=== PATIENT | male | born 1955 | race Caucasian/White ===

== ENCOUNTER 2017-12-30 21:10 | Inpatient (IN) | payer OTHER, MEDICAID ==
[~2017-12-30] VITALS: Ht 170.2 cm; Wt 75.7 kg
[2017-12-30 21:14] VITALS: BP 128/70
[2017-12-30] MEDS ORDERED: PRAM0.5T4 PO (21:23)
[2017-12-30] MEDS ORDERED: METF850T2 PO (21:23)
[2017-12-30] MEDS ORDERED: TRAM50TA1 PO (21:23)
[2017-12-30] MEDS ORDERED: CYCL-654 PO (21:23)
[2017-12-30] MEDS ORDERED: AMLO10TA PO (21:23)
[2017-12-30] MEDS ORDERED: GABA300C PO (21:23)
[2017-12-30] MEDS ORDERED: OMEP20TC12 PO (21:23)
[2017-12-30] MEDS ORDERED: TAMS0.4C96 PO (21:23)
[2017-12-30] MEDS ORDERED: METF1TAB34 PO (21:23)
[2017-12-30] MEDS ORDERED: ASPI81CT89 PO (21:23)
[2017-12-30] MEDS ORDERED: VAS10 PO (21:23)
[2017-12-30] MEDS ORDERED: FURO-570 PO (21:23)
--- NOTE | 2017-12-30 21:32 | NUR ---
PT AMB TO ER BED 1
--- NOTE | 2017-12-30 21:33 | NUR ---
62 y/o M W/C/O WEAKNESS, NUMBNESS TO L LEG/L ARM X 1100 AM THIS MORNING. MILD WEAKNESS NOTED TP L ARM AND L LEG, NO ASYMETRICAL SMILE, PT ALERT AND ORIENTED X 4. ER MD AT BEDSIDE EVALUATING PT.
--- NOTE | 2017-12-30 21:37 | NUR ---
[facility]
[2017-12-30 21:51] LABS: BASOPHILS % (AUTO) 0.6 % (0.0-2.0); EOSINOPHILS # (AUTO) 0.1 K/uL (0-0.4); EOSINOPHILS % (AUTO) 2.8 % (0.0-4.0); HEMOGLOBIN 13.4 g/dL (12.0-18.0); LYMPHOCYTES # (AUTO) 1.3 K/uL (2.0-11.5); LYMPHOCYTES % (AUTO) 27.3 % (20.5-51.1); MEAN CORPUSCULAR HEMOGLOBIN 31 pg (27-31); MEAN CORPUSCULAR HGB CONC 34 g/dL (33-37); MEAN CORPUSCULAR VOLUME 91.6 fL (80-94); MONOCYTES # (AUTO) 0.5 K/uL (0.8-1.0); MONOCYTES % (AUTO) 10.1 % (1.7-9.3); NEUTROPHILS # (AUTO) 2.9 K/uL (1.8-7.7); NEUTROPHILS % (AUTO) 59.2 % (42.2-75.2); PLATELET COUNT (AUTO) 190 K/uL (140-450); RED BLOOD CELL COUNT(AUTO) 4.37 MIL/uL (4.20-6.10); RED CELL DISTRIBUTION WIDTH 13.9 % (11.6-13.7); WHITE BLOOD COUNT (AUTO) 4.9 K/uL (4.8-10.8)
--- NOTE | 2017-12-30 21:51 | NUR ---
PT BACK FROM CT SCAN.
[2017-12-30 22:06] LABS: CARBON DIOXIDE 28.2 mmol/L (21-32); POTASSIUM 4.2 mmol/L (3.5-5.1)
[2017-12-30 22:10] LABS: ALBUMIN 4.2 g/dL (3.4-5.0); TOTAL BILIRUBIN 0.3 mg/dL (0.0-1.0)
[2017-12-30 22:11] LABS: PROTHROMBIN TIME 10.7 secs (10.8-13.4)
[2017-12-30] MEDS ORDERED: BRIN10SU OP (22:12)
[2017-12-30] MEDS ORDERED: BIMA2.5S3 OP (22:12)
[2017-12-30] MEDS ORDERED: TIM.5OS OP (22:12)
[2017-12-30] MEDS ORDERED: LEVEMIR SUBQ (22:12)
[2017-12-30] MEDS ORDERED: VITD400 PO (22:12)
[2017-12-30] MEDS ORDERED: PRAV40TA1 PO (22:12)
[2017-12-30 22:17] LABS: CREATINE KINASE MB 0.9 ng/mL (0-3.6)
--- NOTE | 2017-12-30 22:17 | NUR ---
INFORMED CONSENT OBTAINED FOR CT WITH CONTRAST
--- NOTE | 2017-12-30 22:29 | NUR ---
PT TAKEN FOR CT WITH CONTRAST VIA GURNEY
[2017-12-30] MEDS ORDERED: NACL 0.9% 1,000 ML IV ONE (22:45)
--- NOTE | 2017-12-30 22:50 | NUR ---
PT RESTING IN BED, ON MONITOR, VSS. NO S/S OF DISTRESS NOTED AT THE MOMENT. WILL COT TO MONITOR.
[2017-12-30] MEDS ORDERED: ASPIRIN 325 MG TAB PO ONE (23:25)
[2017-12-30] MEDS ORDERED: INSULIN LISPRO SLIDING SCALE 100 UNITS/ML VIAL SUBQ PRN (23:35)
[2017-12-30] MEDS ORDERED: ACETAMINOPHEN 325 MG TAB PO PRN (23:35)
[2017-12-30] MEDS ORDERED: CYCLOBENZAPRINE 10 MG TAB PO PRN (23:35)
[2017-12-30] MEDS ORDERED: ONDANSETRON 4 MG/2 ML VIAL IVP PRN (23:35)
[2017-12-30] MEDS ORDERED: DEXTROSE 50% 50 ML SYR IVP PRN (23:35)
[2017-12-30] MEDS ORDERED: HYDROcodone/APAP 7.5/325 MG 1 TAB PO PRN (23:35)
[2017-12-30 23:45] LABS: APPEARANCE,URINE CLEAR (CLEAR); BILIRUBIN,URINE NEGATIVE (NEGATIVE); BLOOD, URINE NEGATIVE (NEGATIVE); COLOR,URINE YELLOW (YELLOW); LEUKOCYTE ESTERASE ,URINE NEGATIVE (NEGATIVE); NITRITE, URINE NEGATIVE (NEGATIVE); PH,URINE 7.5 (5.0-9.0); UGLUCOSE NEGATIVE (NEGATIVE)
--- NOTE | 2017-12-30 23:52 | NUR ---
Patient will be admitted to care of DR RUBI. Admited to TELEMETRY. Will go to room 105A. Belongings list completed. Report to RAJAN MYLES.
[2017-12-30 23:55] LABS: BARBITURATE, URINE NEG. ng/ml (NEG <=200); BENZODIAZEPINE, URINE NEG. ng/mL (NEG <=200); CANNABINOID, URINE NEG. ng/mL (NEG <=50); COCAINE, URINE NEG. ng/mL (NEG <=300); OPIATE, URINE NEG. ng/mL (NEG <=2000); PHENCYCLIDINE SCREEN,URINE NEG. ng/mL (NEG <=25)
--- NOTE | 2017-12-30 23:55 | NUR ---
RECEIVED FROM ER PER JOHN PAUL AWAKE AND ALERT. NO SOB. DENIES PAIN AT THIS TIME. CALL LIGHT WITH IN REACH. CARE PLANS FOR THE NIGHT DISCUSSED WITH HIM. PT. DX. TIA. COMPLAINT OF NUMBNESS AND TINGLING SENSATIONS TO LEFT SIDE. SKIN INTACT. NO EDEMA. CTAB. TELEMETRY MONITORING NSR. IVF SITE TO RAC#20 INTACT AND WITH GOOD BLOOD RETURN.
[2017-12-31] MEDS ORDERED: PANTOPRAZOLE 40 MG TABEC PO SCH
[2017-12-31 00:06] LABS: CHOL/HDL RATIO 2.9 (1-4.5); FREE T4 (FREE THYROXINE) 1.14 ng/dL (0.76-1.46); PHOSPHORUS 3.5 mg/dL (2.5-4.9); THYROID STIMULATING HORMONE 1.02 uIU/mL (0.34-3.74)
[2017-12-31 04:51] VITALS: BP 102/63
--- NOTE | 2017-12-31 05:28 | NUR ---
PT. AWAKE AT THIS TIME. AM PERSONAL HYGIENE RENDERED BY CNAS. NO COMPLAINTS OF ANY PAIN AT THIS TIME. CALL LIGHT WITH IN REACH. PT. ABLE TO VERBALIZE NEEDS WELL. BILATERAL SEQUENTIALS IN PLACE. EXPLAINED USE OF IT AND TO BE CAREFUL AND NEED TO CALL FOR HELP WHEN HE GOES BRP RT HE HAS SEQUENTIALS IN PLACE.
[2017-12-31] MEDS: BLOOD GLUCOSE MONITORING 1 DEV DEV FS SCH ×3 (06:27→16:31)
[2017-12-31 06:35] LABS: BASOPHILS % (AUTO) 0.7 % (0.0-2.0); EOSINOPHILS # (AUTO) 0.1 K/uL (0-0.4); HEMATOCRIT 35.4 % (36-52); HEMOGLOBIN 11.8 g/dL (12.0-18.0); LYMPHOCYTES # (AUTO) 1.1 K/uL (2.0-11.5); LYMPHOCYTES % (AUTO) 21.5 % (20.5-51.1); MEAN CORPUSCULAR HEMOGLOBIN 31 pg (27-31); MEAN CORPUSCULAR HGB CONC 33 g/dL (33-37); MEAN CORPUSCULAR VOLUME 92.6 fL (80-94); MONOCYTES # (AUTO) 0.5 K/uL (0.8-1.0); MONOCYTES % (AUTO) 9.7 % (1.7-9.3); NEUTROPHILS # (AUTO) 3.3 K/uL (1.8-7.7); NEUTROPHILS % (AUTO) 66.1 % (42.2-75.2); PLATELET COUNT (AUTO) 162 K/uL (140-450); RED BLOOD CELL COUNT(AUTO) 3.82 MIL/uL (4.20-6.10); RED CELL DISTRIBUTION WIDTH 14.1 % (11.6-13.7); WHITE BLOOD COUNT (AUTO) 4.9 K/uL (4.8-10.8)
[2017-12-31 06:44] LABS: ANION GAP 12.6 (8-16); CARBON DIOXIDE 24.4 mmol/L (21-32); CREATININE 0.9 mg/dL (0.7-1.3)
[2017-12-31 06:49] LABS: MAGNESIUM 1.8 mg/dL (1.8-2.4); PHOSPHORUS 3.1 mg/dL (2.5-4.9)
--- NOTE | 2017-12-31 07:30 | NUR ---
RECEIVED PT FROM PM NURSE, PT AWAKE, ALERT, AND ORIENTED. ON ROOM AIR, NO S/S OF RESPIRATORY DISTRESS NOTED. LUNG SOUND CLEAR, IV SITE INTACT AND PATENT. SKIN INTACT, PT STATED LEFT SIDE WEAKNESS. PT ABLE TO MOVE ALL HIS EXTREMITIES, CALL LIGHT IN REACH, POC EXPLAINED TO PT, PT VERBALIZED UNDERSTANDING, WILL CONTINUE TO MONITOR.
[2017-12-31 08:00] VITALS: BP 142/76
--- NOTE | 2017-12-31 08:00 | NUR ---
PT HAS HISTORY OF LEFT EYE GLAUCOMA. HE IS UNABLE TO SEE CLEARLY TO LEFT SIDE. .
[2017-12-31] MEDS: GABAPENTIN 300 MG CAP PO SCH ×2 (08:07→13:01)
[2017-12-31] MEDS ORDERED: DOCUSATE SODIUM 100 MG GELCAP PO SCH (09:00)
[2017-12-31] MEDS ORDERED: TIMOLOL OP 0.5% 5 ML BTL OP SCH (09:00)
[2017-12-31] MEDS ORDERED: metFORMIN 850 MG TAB PO SCH (09:00)
[2017-12-31] MEDS ORDERED: amLODIPine 5 MG TAB PO SCH (09:00)
[2017-12-31] MEDS ORDERED: ENALAPRIL 10 MG TAB PO SCH (09:00)
[2017-12-31] MEDS ORDERED: TAMSULOSIN 0.4 MG CAP PO SCH (09:00)
[2017-12-31] MEDS ORDERED: FUROSEMIDE 40 MG TAB PO SCH (09:00)
[2017-12-31] MEDS ORDERED: ATORVASTATIN 20 MG TAB PO SCH (09:00)
[2017-12-31] MEDS ORDERED: VITAMIN D 400 IU TAB PO SCH (09:00)
[2017-12-31] MEDS ORDERED: PRAMIPEXOLE 0.5 MG TAB PO SCH (09:00)
[2017-12-31] MEDS ORDERED: ASPIRIN 81 MG TAB.CHEW PO SCH (09:00)
--- NOTE | 2017-12-31 09:00 | NUR ---
DUE MEDS GIVEN, PT TOLERATED WELL.
--- NOTE | 2017-12-31 09:10 | NUR ---
PATIENT HAS BEEN SCREENED AND CATEGORIZED MODERATE NUTRITION RISK. PATIENT WILL BE SEEN WITHIN 3-5 DAYS OF ADMISSION. 01/02/18 01/04/[address]
[2017-12-31] MEDS ORDERED: CHOLECALCIFEROL 1,000 IU TAB PO SCH ×2 (09:41→10:00)
--- NOTE | 2017-12-31 11:50 | NUR ---
SERVED PT LUNCH TRAY. PT DENIES ANY PAIN OR RESPIRATORY DISTRESS AT THIS MOMENT, FAMILY AT BEDSIDE.
[2017-12-31 12:00] VITALS: BP 140/72
--- NOTE | 2017-12-31 14:39 | NUR ---
Patient to transfer to [facility] for MRI for stroke per Dr. Jones. Spoke to Dr. Rios and accept the patient. Contacted the nursing ramp and cargo supervisor, and Tele bed available. Spoke to the stroke nurse coordinator at [facility] and made aware. Faxed all papers to [employer] salesperson at [phone].
--- NOTE | 2017-12-31 14:47 | NUR ---
NOTIFIED PT AND PT'S THAT PT WILL BE TRANSFERRED TO [facility] for MRI for stroke, pt and pt's family verbalized understanding.
--- NOTE | 2017-12-31 15:24 | NUR ---
patient will go to room 357-B AND CALL REPORT AT [phone]. NURSE TO ARRANGE TRANSPORT
--- NOTE | 2017-12-31 15:41 | NUR ---
REPORT GIVEN TO [facility] ALISIA TOLENTINO. PT WILL BE TRANSFERRED TO TELE STATION THREE ROOM 357B
[2017-12-31 16:02] VITALS: BP 121/64
--- NOTE | 2017-12-31 16:21 | NUR ---
[facility] TRANSPORTATION TEAM CAME AT 1610, REPORT GIVEN. PT AWAKE, ALERT, AND ORIENTED. NO S/S OF RESPIRATORY DISTRESS NOTED. FAMILY AT BEDSIDE. DISCHARGE PAPER SIGNED. ID BAND REMOVED. ALL PERSONAL BELONGS WITH PT. PT LEFT WITH TRANSPORTATION TEAM IN STABLE CONDITION AT THIS TIME.
[2017-12-31] MEDS ORDERED: INSULIN LANTUS 100 UNITS/ML 10 ML VIAL SUBQ SCH (21:00)
[2018-01-01] MEDS ORDERED: CHOLECALCIFEROL 1,000 IU TAB PO SCH (09:00)
== END 2017-12-31 16:00 | disposition short-term general hospital (02) | DRG 69 ==
LOC: MED 21:10 → MTU 23:30
PROVIDERS: ADMIT Family Medicine Sports Medicine; ATTEND Family Medicine Sports Medicine
DX: G45.9 Transient cerebral ischemic attack, unspecified (principal); D68.59 Other primary thrombophilia; E11.42 Type 2 diabetes mellitus with diabetic polyneuropathy; E11.65 Type 2 diabetes mellitus with hyperglycemia; E11.51 Type 2 diabetes mellitus with diabetic peripheral angiopathy without gangrene; E11.69 Type 2 diabetes mellitus with other specified complication; G90.9 Disorder of the autonomic nervous system, unspecified; I10 Essential (primary) hypertension; H54.40 Blindness, one eye, unspecified eye; E78.5 Hyperlipidemia, unspecified; N40.0 Benign prostatic hyperplasia without lower urinary tract symptoms; Z83.3 Family history of diabetes mellitus; Z79.4 Long term (current) use of insulin; Z79.82 Long term (current) use of aspirin; Z79.84 Long term (current) use of oral hypoglycemic drugs; Z79.899 Other long term (current) drug therapy
CPT/HCPCS: 36415; 70450; 70460; 70491; 71045; 80048; 80053; 80305; 81003; 82150; 82550; 82553; 82948; 83036; 83690; 83735; 84100; 84439; 84443; 84484; 85025; 85610; 85730; 86886; 86900; 86901; 87081; 93880; 93925; 93970; 96360; 99285; J1815; Q0092; Q9967